=== PATIENT | female | born 1980 | race Caucasian/White ===

== ENCOUNTER 2019-01-14 19:00 | Emergency (ER) | payer BC ==
[2019-01-14 20:03] LABS: ABS Eosinophils 0.1 10^3/ul (0-0.6); ABS Lymphocytes 3.3 10^3/ul (1.0-4.8); ABS Monocytes 0.4 10^3/ul (0-0.8); ABS Neutrophils 2.3 10^3/ul (1.5-7.7); Eosinophil % 1.9 %; Hematocrit 41 % (35-47); Lymphocyte % 53.9 %; Mean Corpuscular HGB Conc 34 g/dL (31-36); Mean Corpuscular Hemoglobin 32 pg (27-31); Mean Corpuscular Volume 95 fL (80-97); Nucleated Red Blood Cells % 0.1; Platelet Count 308 10^3/uL (150-450); Red Blood Count 4.35 10^6 /uL (3.70-4.87); Red Cell Distribution Width 12 % (10-15); White Blood Count 6.1 10^3/uL (3.5-10.8)
[2019-01-14 20:21] LABS: ALT 9 U/L (7-52); AST 16 U/L (13-39); Albumin 4.3 g/dL (3.2-5.2); Albumin/Globulin Ratio 1.7 (1-3); Alkaline Phosphatase 54 U/L (34-104); Anion Gap 7 mmol/L (2-11); BUN/Creatinine Ratio 21.9 (8-20); Blood Urea Nitrogen 16 mg/dL (6-24); C Reactive Protein < 1.00 mg/L (<8.01); CO2 Carbon Dioxide 26 mmol/L (22-32); Calcium 8.9 mg/dL (8.6-10.3); Chloride 105 mmol/L (101-111); EGFR Non-African American 89.2 (>60); Globulin 2.6 g/dL (2-4); Glucose 93 mg/dL (70-100); Potassium 3.6 mmol/L (3.5-5.0); Sodium 138 mmol/L (135-145); Total Protein 6.9 g/dL (6.4-8.9)
--- NOTE | 2019-01-14 21:05 | ED ---
Abdominal Pain/Female - HPI Summary HPI Summary: Ms. Cummings fell while skateboarding on and hurt her left lateral chest. Monday the pain started to get worse and this AM she went to [facility] where she received a CXR which reportedly showed a broken rib (I am unable to access it). This afternoon, she coughed up a small amount of blood once and came in as she had been instructed. She was nontoxic in appearance with stable vitals. Her lung was clear with good breath sounds throughout. By the time I saw her, about three hours had passed since the cough. I recommended a CT or at least repeating the CXR but she had financial concerns. I doubt that anything significant is happening as she looks great and a significant amount of time has passed since the original injury and also since the coughing. (of only a small amount of blood). - History of Current Complaint Chief Complaint: EDChestWallPain Stated Complaint: FRACTURED RIB, COUGHING UP BLOOD PER PT Time Seen by Provider: 01/14/19 20:45 Hx Last Menstrual Period: 10/06/12 Pain Intensity: 7 Allergies/Adverse Reactions: Allergies Allergy/AdvReac Type Severity Reaction Status Date / Time No Known Allergies Allergy Verified 01/14/19 19:02 PMH/Surg Hx/FS Hx/Imm Hx - Surgical History Surgery Procedure, Year, and Place: TONSILLECTOMY 1984 Infectious Disease History: No Infectious Disease History: Denies: Traveled Outside the [place] in Last 30 Days - Social History Substance Use Type: Reports: None Review of Systems All Other Systems Reviewed And Are Negative: Yes Physical Exam Vital Signs On Initial Exam: Initial Vitals Temp Pulse Resp BP Pulse Ox 97.3 F 64 18 171/101 100 01/14/19 19:02 01/14/19 19:02 01/14/19 19:02 01/14/19 19:02 01/14/19 19:02 Diagnostics - Vital Signs Vital Signs Temp Pulse Resp BP Pulse Ox 01/14/19 19:02 97.3 F 64 18 171/101 100 - Laboratory Lab Results: Lab Results 01/14/19 01/14/19 Range/Units 19:57 19:57 WBC 6.1 (3.5-10.8) 10^3/uL RBC 4.35 (3.70-4.87) 10^6 /uL Hgb 14.0 (12.0-16.0) g/dL Hct 41 (35-47) % MCV 95 (80-97) fL MCH 32 H (27-31) pg MCHC 34 (31-36) g/dL RDW 12 (10-15) % Plt Count 308 (150-450) 10^3/uL MPV 7.0 L (7.4-10.4) fL Neut % (Auto) 36.8 % Lymph % (Auto) 53.9 % [place] % (Auto) 6.6 % Eos % (Auto) 1.9 % Baso % (Auto) 0.8 % Absolute Neuts (auto) 2.3 (1.5-7.7) 10^3/ul Absolute Lymphs (auto) 3.3 (1.0-4.8) 10^3/ul Absolute Monos (auto) 0.4 (0-0.8) 10^3/ul Absolute Eos (auto) 0.1 (0-0.6) 10^3/ul Absolute Basos (auto) 0.0 (0-0.2) 10^3/ul Absolute Nucleated RBC 0.0 10^3/ul Nucleated RBC % 0.1 Sodium 138 (135-145) mmol/L Potassium 3.6 (3.5-5.0) mmol/L Chloride 105 (101-111) mmol/L Carbon Dioxide 26 (22-32) mmol/L Anion Gap 7 (2-11) mmol/L BUN 16 (6-24) mg/dL Creatinine 0.73 (0.51-0.95) mg/dL Est GFR ( Amer) 108.0 (>60) Est GFR (Non-Af Amer) 89.2 (>60) BUN/Creatinine Ratio 21.9 H (8-20) Glucose 93 (70-100) mg/dL Calcium 8.9 (8.6-10.3) mg/dL Total Bilirubin 0.30 (0.2-1.0) mg/dL AST 16 (13-39) U/L ALT 9 (7-52) U/L Alkaline Phosphatase 54 (34-104) U/L C-Reactive Protein < 1.00 (<8.01) mg/L Total Protein 6.9 (6.4-8.9) g/dL Albumin 4.3 (3.2-5.2) g/dL Globulin 2.6 (2-4) g/dL Albumin/Globulin Ratio 1.7 (1-3) Result Diagrams: 01/14/19 19:57 01/14/19 19:57 Lab Statement: Any lab studies that have been ordered have been reviewed, and results considered in the medical decision making process. Abdominal Pain Fem Course/Dx - Diagnoses Provider Diagnoses: Rib fractures Discharge - Sign-Out/Discharge Documenting (check all that apply): Patient Departure - Discharge Patient Received Moderate/Deep Sedation with Procedure: No - Discharge Plan Condition: Stable Disposition: HOME Patient Education Materials: Rib Fracture (ED) Referrals: Care [facility] [Outside] - 3 Days Additional Instructions: Follow up with primary care provider within 2-3 days. RETURN TO THE EMERGENCY DEPARTMENT FOR CHANGING OR WORSENING SYMPTOMS. - Billing Disposition and Condition Condition: STABLE Disposition: Home - Attestation Statements Document Initiated by Scribe: Yes Documenting Scribe: Raiza Linder Provider For Whom Scribe is Documenting (Include Credential): Dr. Kenan Serrano MD Scribe Attestation: Raiza Morales scribed for Dr. Kenan Serrano MD on 01/15/19 at 1516. Scribe Documentation Reviewed: Yes Provider Attestation: The documentation as recorded by the Raiza silva accurately reflects the service I personally performed and the decisions made by , Dr. Kenan Serrano MD Status of Scribe Document: Viewed
[2019-01-14 21:20] VITALS: BP 127/64
== END 2019-01-14 21:19 | disposition home or self-care (01) ==
LOC: ED 19:00
DX: S22.39XA Fracture of one rib, unspecified side, initial encounter for closed fracture (principal); V00.131A Fall from skateboard, initial encounter; Y93.51 Activity, roller skating (inline) and skateboarding
CPT/HCPCS: 36415; 80053; 85025; 86140; 99282

== ENCOUNTER 2020-08-22 18:31 | Inpatient (IN) ==
[2020-08-22 19:46] LABS: Urine Appearance Clear; Urine Bilirubin Negative (Negative); Urine Blood Negative (Negative); Urine Color Colorless; Urine Glucose Negative (Negative); Urine Ketones Negative (Negative); Urine Nitrite Negative (Negative); Urine Protein Negative (Negative); Urine Specific Gravity 1.001 (1.010-1.030); Urine Urobilinogen Negative (Negative)
[2020-08-22 19:52] LABS: ABS Eosinophils 0.5 10^3/ul (0-0.6); ABS Lymphocytes 3.1 10^3/ul (1.0-4.8); ABS Monocytes 0.5 10^3/ul (0-0.8); ABS Neutrophils 2.9 10^3/ul (1.5-7.7); Eosinophil % 6.4 %; Hematocrit 42 % (35-47); Hemoglobin 14.2 g/dL (12.0-16.0); Lymphocyte % 44.1 %; Mean Corpuscular HGB Conc 34 g/dL (31-36); Mean Corpuscular Hemoglobin 32 pg (27-31); Mean Corpuscular Volume 94 fL (80-97); Mean Platelet Volume 6.6 fL (7.4-10.4); Platelet Count 355 10^3/uL (150-450); Red Blood Count 4.46 10^6 /uL (3.70-4.87); Red Cell Distribution Width 12 % (10-15)
[2020-08-22 20:07] LABS: ALT 10 U/L (7-52); AST 17 U/L (13-39); Albumin 4.6 g/dL (3.2-5.2); Albumin/Globulin Ratio 1.7 (1-3); Alkaline Phosphatase 55 U/L (34-104); Anion Gap 9 mmol/L (2-11); BUN/Creatinine Ratio 12.3 (8-20); Blood Urea Nitrogen 10 mg/dL (6-24); CO2 Carbon Dioxide 24 mmol/L (22-32); Chloride 105 mmol/L (101-111); EGFR African American 95.2 (>60); EGFR Non-African American 78.7 (>60); Globulin 2.7 g/dL (2-4); Glucose 90 mg/dL (70-100); Sodium 138 mmol/L (135-145); Total Protein 7.3 g/dL (6.4-8.9)
[2020-08-22 20:08] LABS: Urine Benzodiazepine Screen None Detected (None Detect); Urine Cannabinoids Screen None Detected (None Detect); Urine Opiates Screen None Detected (None Detect)
[2020-08-22 21:01] LABS: Acetaminophen < 15 mcg/mL; Alcohol, S 179 mg/dL (<10); Salicylate < 2.50 mg/dL (<30)
[2020-08-22 21:16] LABS: TSH Ultra Thyroid Stim Horm 1.44 mcIU/mL (0.34-5.60)
[2020-08-23] MEDS ORDERED: Al Hydrox/Mg Hydrox/Simet LIQ 30 ML UDC PO PRN (02:43)
[2020-08-23] MEDS: Vitamin THERAPEUTIC TAB PO SCH (08:50)
[2020-08-24] MEDS: Vitamin THERAPEUTIC TAB PO SCH (08:25)
[2020-08-24 09:02] LABS: HDL Cholesterol 89.1 mg/dL
[2020-08-24] MEDS ORDERED: Polyethylene Glycol 3350 17 GM PACKET PO PRN (17:00)
[2020-08-25] MEDS: Vitamin THERAPEUTIC TAB PO SCH (08:11)
[2020-08-25 09:29] VITALS: BP 124/75
== END 2020-08-25 12:50 | disposition home or self-care (01) | DRG 751 ==
LOC: ED 18:31 → BSU 08-23 02:05
PROVIDERS: ADMIT Psychiatry & Neurology Psychiatry; ATTEND Psychiatry & Neurology Psychiatry